=== PATIENT | female | born 1945 ===

== ENCOUNTER 2017-03-04 11:31 | Observation (INO) | payer MEDICARE ==
[2017-03-04 11:34] VITALS: BMI 22.0
[2017-03-04 11:35] VITALS: O2SAT 98
--- NOTE | 2017-03-04 12:03 | ED PDOC ---
HPI: Head Injury Time Seen by Provider: 03/04/17 11:49 Chief Complaint (Provider): Head injury History Per: Patient History/Exam Limitations: no limitations Onset/Duration Of Symptoms: Days ([employer]) Additional Complaint(s): Pt. accidentally tripped and hit her head on a metal wall. No LOC. No dizziness. No neck pain, weakness, numbness, tingles, vision changes. Ambulated with no issues. No nausea, vomit, diarrhea. Pain and laceration on head. Past Medical History Reviewed: Nursing Documentation, Vital Signs Vital Signs: Last Vital Signs Temp 97.9 F 03/04/17 11:34 Pulse 61 03/04/17 11:34 Resp 17 03/04/17 11:34 BP 159/77 H 03/04/17 11:34 Pulse Ox 98 03/04/17 11:34 - Medical History PMH: HTN - Surgical History Surgical History: CABG - Family History Family History: States: Unknown Family Hx - Living Arrangements Living Arrangements: With Family - Social History Current smoker - smoking cessation education provided: No Alcohol: None Drugs: Denies - Allergies Allergies/Adverse Reactions: Allergies Allergy/AdvReac Type Severity Reaction Status Date / Time No Known Allergies Allergy Verified 03/04/17 12:00 Review of Systems ROS Statement: Except As Marked, All Systems Reviewed And Found Negative Neurological: Positive for: Headache Physical Exam - Reviewed Nursing Documentation Reviewed: Yes Vital Signs Reviewed: Yes - Physical Exam Appears: Positive for: Non-toxic, No Acute Distress Head Exam: Positive for: NORMAL INSPECTION, NORMOCEPHALIC. Negative for: ATRAUMATIC (R forehead slightly diagnal laceration approx 4 inche) Skin: Positive for: Normal Color, Warm, DRY Eye Exam: Positive for: EOMI, Normal appearance, PERRL ENT: Positive for: Normal ENT Inspection Neck: Positive for: Normal, Painless ROM Cardiovascular/Chest: Positive for: Regular Rate, Rhythm Respiratory: Positive for: CNT, Normal Breath Sounds Gastrointestinal/Abdominal: Positive for: Normal Exam, Bowel Sounds, Soft. Negative for: Tenderness Back: Positive for: Normal Inspection. Negative for: L CVA Tenderness, R CVA Tenderness Extremity: Positive for: Normal ROM. 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 Negative for: Motor/Sensory Deficits, Aphasia - ECG O2 Sat by Pulse Oximetry: 98
--- NOTE | 2017-03-04 13:17 | ED PDOC ---
HPI: Headache Time Seen by Provider: 03/04/17 11:49 Chief Complaint (Nursing): Trauma Chief Complaint (Provider): Head injury History Per: Patient History/Exam Limitations: no limitations Onset/Duration Of Symptoms: Days (1 hr [employer]) Additional Complaint(s): Pt. accidentally hit head on metal wall after tripping on a wheel of her cart. No loc. No dizziness, weakness, neck pain, vision changes, chest pain, dyspnea , abd pain, back pain. No nausea, vomit. Past Medical History Reviewed: Nursing Documentation, Vital Signs Vital Signs: Last Vital Signs Temp 97.9 F 03/04/17 11:34 Pulse 61 03/04/17 11:34 Resp 17 03/04/17 11:34 BP 159/77 H 03/04/17 11:34 Pulse Ox 98 03/04/17 11:34 - Medical History PMH: HTN - Surgical History Surgical History: CABG - Family History Family History: States: Unknown Family Hx - Living Arrangements Living Arrangements: With Family - Social History Current smoker - smoking cessation education provided: No Alcohol: None Drugs: Denies - Allergies Allergies/Adverse Reactions: Allergies Allergy/AdvReac Type Severity Reaction Status Date / Time No Known Allergies Allergy Verified 03/04/17 12:00 Review of Systems ROS Statement: Except As Marked, All Systems Reviewed And Found Negative Neurological: Positive for: Headache Physical Exam - Reviewed Nursing Documentation Reviewed: Yes Vital Signs Reviewed: Yes - Physical Exam Appears: Positive for: Non-toxic, No Acute Distress Head Exam: Positive for: NORMAL INSPECTION, NORMOCEPHALIC. Negative for: ATRAUMATIC (R forehead with diagnal laceration 4 in) Skin: Positive for: Normal Color, Warm, DRY Eye Exam: Positive for: EOMI, Normal appearance, PERRL ENT: Positive for: Normal ENT Inspection Neck: Positive for: Normal, Painless ROM, Supple Cardiovascular/Chest: Positive for: Regular Rate, Rhythm Respiratory: Positive for: CNT, Normal Breath Sounds Gastrointestinal/Abdominal: Positive for: Normal Exam, Bowel Sounds, Soft. Negative for: Tenderness Back: Positive for: Normal Inspection. Negative for: L CVA Tenderness, R CVA Tenderness Extremity: Positive for: Normal ROM. 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 Negative for: Motor/Sensory Deficits, Facial Droop - ECG O2 Sat by Pulse Oximetry: 98 Pulse Ox Interpretation: Normal - CT Scan/US head Other Rad Studies (CT/US): Read By Radiologist Other Rad Interpretation: no acute - Progress ED Course And Treament: 1452: Stable. AAOx3. Pain free. Plastics sutured lac. No antibiotics per plastics. Fu with them Thurs. Ambulated with no issues. ED OBSERVATION Discharge: Yes Date of observation admission: 03/04/17 Time of observation admission: 13:21 - Observation admission statement Patient is being placed in observation because:: head inj eval - Goals of Observation Goals of observation are:: pending plastics for lac repair - Progress Note Progress Note: 03/04/17 14:53 Pain free. Disposition - Clinical Impression Clinical Impression: Head injury, Laceration - Patient ED Disposition Is Patient to be Admitted: No Counseled Patient/Family Regarding: Studies Performed, Diagnosis, Need For Followup - Disposition Disposition: Routine/Home Disposition Time: 14:53 Condition: STABLE
--- NOTE | 2017-03-04 13:26 | CT ---
PROCEDURE: CT HEAD WITHOUT CONTRAST. HISTORY: headache COMPARISON: None available. TECHNIQUE: Axial computed tomography images were obtained through the head/brain without intravenous contrast. Radiation dose: Total exam DLP = 874 mGy-cm. This CT exam was performed using one or more of the following dose reduction techniques: Automated exposure control, adjustment of the mA and/or kV according to patient size, and/or use of iterative reconstruction technique. FINDINGS: HEMORRHAGE: No intracranial hemorrhage. BRAIN: No mass effect or edema. No atrophy or chronic microvascular ischemic changes. VENTRICLES: Unremarkable. No hydrocephalus. CALVARIUM: Unremarkable. PARANASAL SINUSES: Unremarkable as visualized. No significant inflammatory changes. MASTOID AIR CELLS: Unremarkable as visualized. No inflammatory changes. OTHER FINDINGS: None. IMPRESSION: Normal CT of the Head.
[2017-03-04] MEDS ORDERED: Lidocaine/Epi 1% 1:100000 20 ML IJ ONE (14:20)
[2017-03-04] MEDS ORDERED: Lidocaine 2% w Epi 1:100,000 Inj IJ ONE (14:22)
[2017-03-04 15:20] VITALS: BP 120/78; PULSE 78; RESP 19; TEMP 97.6
--- NOTE | 2017-03-05 23:08 | OP ---
PROCEDURE DATE: 03/04/2017 PREOPERATIVE DIAGNOSIS: A 8 cm vertical right forehead laceration. POSTOPERATIVE DIAGNOSIS: A 8 cm vertical right forehead laceration. PROCEDURE PERFORMED: Complex repair of 8 cm right forehead laceration. SURGEON: Jorge Newman MD TYPE OF ANESTHESIA: Regional. 1. Right supraorbital nerve block. 2. Right supratrochlear nerve block. INDICATION OF THE PROCEDURE: As follows. This is a 71-year-old female who fell into the corner of the wall at the home, presented to the emergency room with a right complex deep laceration of the right lateral forehead that went all the way down to the bone. The ER staff consulted me because of this complex injury. I came in to evaluate her. On physical exam, the bone was nontender. Her facial nerve appeared intact. The frontalis muscle was completely lacerated. There was 8 cm vertical laceration down to the periosteum. There was no bony step off. The nasal bones and orbital bones were nontender. Extraocular movement exam was normal. She did have paresthesias in the distribution of the right supraorbital nerve, distal to the laceration after the scalp that was numb. The supratrochlear nerve appeared to be normal, as was on the left side. The sensory nerves appeared to be normal. I explained to the patient and her daughter, she likely injured her swelling on the right supraorbital nerve and her scalp and forehead may have remain numb and its not something that is usually fixed. They understood this. I said that there will be a scar, my job as a plastic surgeon is to minimize it. Risks and benefits were fully discussed and all questions were answered. DESCRIPTION OF PROCEDURE: A 1% lidocaine with 1:100,000 epinephrine was used in the right supratrochlear and supraorbital nerve block. After allowing sufficient time for the anesthetic to take effect, the wounds were thoroughly irrigated with normal saline. Any retained debris were manually removed. The area was prepped and draped in usual clean and sterile manner. I started the operation by first aligning up and approximating the frontalis muscle in an interrupted fashion with 4-0-Vicryl sutures. I then aligned up and approximated subcutaneous tissue in interrupted fashion with 4-0-Vicryl sutures. I debrided some of the irregular skin edges with scissors technique, aligned and approximated the deep dermis in an interrupted fashion with 5-0 Monocryl sutures. I then closed the epidermis in a running 5-0 Prolene sutures. After doing this, wound edges were nicely aligned. The patient tolerated the procedure well and eventually discharged home from the emergency room in stable condition. Postoperative wound care, limitation of physical activities, the fact there will be a scar, the prognosis of which is unknown, and likely permanent paresthesias of the right scalp and forehead were discussed and then all questions were answered. Jorge Newman MD
== END 2017-03-04 14:54 | disposition home or self-care (01) ==
LOC: H.ER 11:31 → H.EROBSV 13:14
PROVIDERS: ADMIT Emergency Medicine; ATTEND Emergency Medicine
DX: S09.90XA Unspecified injury of head, initial encounter (principal); W01.0XXA Fall on same level from slipping, tripping and stumbling without subsequent striking against object, initial encounter; Y93.9 Activity, unspecified; Y92.9 Unspecified place or not applicable; I10 Essential (primary) hypertension; Z95.1 Presence of aortocoronary bypass graft; Z23 Encounter for immunization
CPT/HCPCS: 70450; 90471; 90715; 99282; G0378